=== PATIENT | male | born 1950 | race Caucasian/White ===

== ENCOUNTER 2023-01-05 07:30 | Observation (INO) ==
--- NOTE | 2022-12-08 09:14 | PAT Medication Instructions ---
Medication Instructions Date of Service December 08, 2022 Home Medications cholecalciferol (vitamin D3) 50 mcg (2,000 unit) tablet (Vitamin D3) 50 mcg PO QAM tamsulosin 0.4 mg capsule 0.4 mg PO HS aspirin 81 mg tablet,delayed release 81 mg PO QAM lisinopril 30 mg tablet 15 mg PO QAM pantoprazole 40 mg tablet,delayed release 20 mg PO QAM ASK your prescriber and surgeon aspirin 81 mg tablet,delayed release 81 mg PO QAM DO NOT take the morning of surgery cholecalciferol (vitamin D3) 50 mcg (2,000 unit) tablet (Vitamin D3) 50 mcg PO QAM lisinopril 30 mg tablet 15 mg PO QAM Take morning of surgery With a small sip of water, OTHERWISE NOTHING TO EAT OR DRINK AFTER MIDNIGHT: pantoprazole 40 mg tablet,delayed release 20 mg PO QAM Take evening before surgery tamsulosin 0.4 mg capsule 0.4 mg PO HS Other Notes If you have any questions please call us at [phone] or [phone] or [phone] or [phone]
--- NOTE | 2022-12-09 08:47 | History & Physical Report ---
Date of Service December 09, 2022 date of surgery: 01/05/23 Procedure: Left Total Knee Arthroplasty, Right Arthroscopy Knee with Partial medial and Lateral Menisectomies Surgeon: Sonny Virk Assessment & Plan (1) Arthritis of knee, left: Plan: X-rays reviewed of his left knee which show advanced degenerative changes of the left knee, we discussed treatment options and he would like to proceed with a left total knee replacement, patient matched [employer] at [facility]. We will plan on scoping his right knee at the same time. We will plan on overnight stay at the hospital and home health physical therapy. Will place on Xarelto x1 month postop for DVT prophylaxis The risks and benefits have been discussed including, but not limited to, risk of infection, nerve injury, stiffness, loss of motion, failure to improve, etc. Reasonable outcomes and options of treatment were discussed. An explanation of appropriate alternatives to the procedure that may be advantageous were discussed and their risks and benefits, as well as the risks and benefits of not proceeding with treatment. I offered to answer any additional inquiries concerning the treatment involved. All the patient's questions were answered. The patient is agreeable, understanding of the treatment plan and alternatives, and wishes to proceed with the treatment plan. (2) Tear of medial meniscus of right knee: Plan: MRI and x-rays reviewed of his right knee which show tear of both medial lateral meniscus as well as degenerative changes to the right knee joint. We discussed treatment options including injections as well as arthroscopy versus total knee replacement. He has tried injections which have only provided short-term relief, he does not feel that he is quite ready for a right knee replacement and would like to proceed with right knee arthroscopy with partial medial lateral meniscectomies. We did discuss he has some underlying degenerative changes as well. (3) Tear of lateral meniscus of right knee: History of Present Illness Chief Complaint: bilateral knee pain Primary Care Provider: Preet Cisneros MD Darin is a pleasant 72-year-old male who presents for preop evaluation prior to left total knee replacement and right knee arthroscopy with partial medial and lateral meniscectomies. X-rays reviewed with patient which show advanced degenerative changes of the left knee, had an MRI evaluation of the right knee which showed medial lateral meniscus tears. He has undergone previous cortisone injections which provide about 1 to 2 weeks of relief, currently active in his daily activities including walking standing going up and down steps. Also having pain with golfing. He has tried oral anti-inflammatories and Tylenol without relief. After discussing further care he would like to proceed with surgical invention. He has also had a history of knee arthroscopy to each of his knees in the past Allergies Allergy/AdvReac Type Severity Reaction Status Date / Time doxycycline Allergy Mild itching Verified 12/02/22 13:47 Home Medications Medication Instructions Recorded Confirmed Type cholecalciferol (vitamin D3) 50 50 mcg PO QAM 03/12/22 12/02/22 History mcg (2,000 unit) tablet (Vitamin D3) tamsulosin 0.4 mg capsule 0.4 mg PO HS 03/12/22 12/02/22 History aspirin 81 mg tablet,delayed 81 mg PO QAM 12/02/22 12/02/22 History release lisinopril 30 mg tablet 15 mg PO QAM 12/02/22 12/02/22 History pantoprazole 40 mg tablet,delayed 20 mg PO QAM 12/02/22 12/02/22 History release Past Med/Surg History Medical History Arthritis BPH (benign prostatic hyperplasia) History of atrial fibrillation at age 50 > no known recurrence History of COVID-19 Covid x2, most recent 05/2021 (asymptomatic, exposure - from it) Hx of gastroesophageal reflux (GERD) Hx of gout Hx of pancreatitis 2021 hospitalized/EUS done at [facility] [place] Surgical History History of arthroscopy R/L knees History of cholecystectomy History of colonoscopy History of tooth extraction Hx of inguinal hernia repair Family History Mother Diabetes Other No family history of adverse response to anesthesia Social History Smoking Status: Never smoker Second Hand Exposure: No; Do You Dip or Chew Tobacco: No; Hx Alcohol Use: No Hx Substance Use: No Preferred Language: Mohawk Communication Ability: Effective Rn Hematology Required: No Beliefs That Will Affect Care: None Current Living Situation: Significant Other Feels Safe at Home: Yes Safety Concerns: Feels Safe At This Time Assistive Devices: Glasses Review of Systems Review of Systems: All systems reviewed & are unremarkable except as noted in HPI & below Constitutional: no fever, no chills and no sweats Respiratory: no cough and no dyspnea Cardiovascular: no chest pain, no dyspnea and no orthopnea Gastrointestinal: no abdominal pain, no nausea and no vomiting Musculoskeletal: as per Subjective / HPI Physical Exam Physical Exam: HT: 6 ft WT: 82.55 kg Constitutional: WD/WN, vitals as above no acute distress Respiratory: normal respiratory effort, lungs clear to auscultation no respiratory distress, no labored breathing and does not use accessory muscles Cardiovascular: RRR, no murmur, no edema Gastrointestinal (Abdomen): normal bowel sounds, soft, nontender, no hepatosplenomegaly Musculoskeletal: Knee: + knee abnormal to inspection (LEFT KNEE), + effusion (+1 effusion), + limited ROM of knee (ROM 0/3/110), + knee ROM with crepitation, + joint line tenderness (medial joint line) and + Isai's sign positive; no deformity, no skin erythema, no ecchymosis, no valgus laxity, no varus laxity, anterior drawer test negative, Ac's sign negative and pivot shift test negative Right Knee Exam ambulates with a limp, overall neutral alignment, no erythema or warmth, no atrophy or ecchymosis, mild effusion, tenderness to the knee greatest over medial compartment, negative patellar apprehension , no crepitation with motion, ac's negative, Isai's - lateral negative, Isai's - medial positive, Posterior drawer- negative, anterior drawer negative, valgus stress negative, varus stress negative, no extensor lag, pain with active range of motion, no pain with passive painful ROM, Range of motion 0/3/120. No pain with active/passive ROM of ankle. Lower extremity strength normal. Lower extremity neuro-vascular is normal Results & Data Results & Data Diagnostic Findings 4 views left knee showing advanced DJD of the left knee, bone on bone changes, narrowing medial compartment an PF joint with osteophyte formation and subchondral sclerosis. no acute bony pathology noted. Assessment: DJD of the left knee MRI reviewed of his right knee which shows tears of the medial lateral meniscus as well as degenerative changes tricompartmentally
--- NOTE | 2022-12-16 10:58 | Anesthesiology Consultation ---
Date of Service December 16, 2022 Assessment & Plan (1) Encounter for pre-operative examination: - COVID screening: Per assessment on 12/16: No known COVID-19 positive contacts or current COVID-19 related symptoms. Travel screen negative. Patient vaccinated. At surgeon discretion if preop Covid testing being done. - PCP visit (11/18/22): "Patient is cleared for surgery." Chart Review Chart Review: Acceptable Risk for Surgery and Patient seen in Pre Admission Testing Teaching & Discussion Pre-Anesthesia Teaching/Discussion Notes: Instructed NPO after midnight before surgery,except medications with 15 cc of water. Medication instructions provided according to the PAT guidelines. History Surgery Operation Date: 01/05/23 11:20 Proposed Procedures p Left Total Knee Arthroplasty - Sonny Virk DO s Right Arthroscopy Knee with Partial medial and Lateral Menisectomies - Sonny Virk DO Height/Weight Height: 6 ft Weight: 85.6 kg Allergies Allergy/AdvReac Type Severity Reaction Status Date / Time doxycycline Allergy Mild itching Verified 12/02/22 13:47 Medications Home Medications Medication Instructions Recorded Confirmed Last Taken cholecalciferol (vitamin D3) 50 50 mcg PO QAM 03/12/22 12/02/22 Unknown mcg (2,000 unit) tablet (Vitamin D3) tamsulosin 0.4 mg capsule 0.4 mg PO HS 03/12/22 12/02/22 Unknown aspirin 81 mg tablet,delayed 81 mg PO QAM 12/02/22 12/02/22 Unknown release lisinopril 30 mg tablet 15 mg PO QAM 12/02/22 12/02/22 Unknown pantoprazole 40 mg tablet,delayed 20 mg PO QAM 12/02/22 12/02/22 Unknown release Past Medical History Medical History Arthritis BPH (benign prostatic hyperplasia) History of atrial fibrillation Episode at age 50, no known recurrence History of COVID-19 Covid x2, most recent 05/2021 (asymptomatic, exposure - from it) Hx of gastroesophageal reflux (GERD) Hx of gout Hx of pancreatitis 2021 hospitalized/EUS done at [place], no current issues Hypertension Right leg numbness Right thigh occasional numbness with prolonged standing, no definitive diagnosis Exercise / Class Metabolic Activity II 4-5 Yardwork/Stairs/Walk up hill (one FS (no CP, no SOB)) Past Family History Family History Mother Diabetes Other No family history of adverse response to anesthesia Past Surgical History Surgical History History of arthroscopy R/L knees History of cholecystectomy History of colonoscopy History of tooth extraction Hx of inguinal hernia repair Past Anesthesia History No Hx of Anesthesia Complications and No Family Hx of Anesthesia Complications History of PONV No Hx of PONV and No Hx of Motion Sickness Social History Smoking Status: Never smoker Do You Dip or Chew Tobacco: No Hx Alcohol Use: No Alcohol type: wine alcohol intake frequency: 0-2 drinks per day (At most one glass wine/day) Hx Substance Use: No substance use type: does not use Review of Systems Patient denies chest pain, shortness of breath, dyspnea on exertion, fever, chills, cough, wheezing, palpitations. Physical Exam Vital Signs VITALS BP 138/75 P 51 TEMP 97.8 SP02 97%RA RESP 16 PHYSICAL Full cervical extension range of motion. Full TMJ range of motion. TMD 3 finger breaths Mallampati Score 2 Dentition: intact, + caps/crowns/implant (sides/molars) Lungs: clear throughout to auscultation Cardiac: regular rate and rhythm, no murmurs noted Spine: normal Carotid arteries: negative bruit Extremities: no LE edema Lab Results Anesthesia Preop Results Results Anesthesia Widget: WBC 4.20 K/ul (4.8-10.8) L 12/16/22 Hgb 14.4 g/dl (14.0-18.0) 12/16/22 Hct 44.2 % (42.0-52.0) 12/16/22 Plt 190 K/uL (130-400) 12/16/22 Na 138 mmol/L (136-145) 12/16/22 K 4.9 mmol/L (3.5-5.1) 12/16/22 Cl 105 mmol/L (98-107) 12/16/22 CO2 30 mmol/L (21-32) 12/16/22 BUN 26 mg/dl (6-23) H 12/16/22 Creat 0.86 mg/dl (0.6-1.4) 12/16/22 Glucose Level 112 mg/dl (70-99(Fasting)) H 12/16/22 PT 11.0 Seconds (9.0-12.0) 12/16/22 PTT 29.5 Seconds (21.0-31.0) 12/16/22 INR 1.0 (0.9-1.1) 12/16/22 HA1c 6.1 % (4.5-5.6) H 12/16/22 Urine Color Yellow 12/16/22 Urine Appearance Clear (Clear) 12/16/22 Urine pH 5.5 (4.5-7.5) 12/16/22 Urine Specific [place] 1.015 (1.000-1.030) 12/16/22 Urine Protein Negative (Negative) 12/16/22 Urine Glucose (UA) Negative (Negative) 12/16/22 Urine Ketones Negative (Negative) 12/16/22 Urine Blood Negative (Negative) 12/16/22 Urine Nitrite Negative (Negative) 12/16/22 Urine Bilirubin Negative (Negative) 12/16/22 Urine Urobilinogen Negative (Negative) 12/16/22 Urine Leukocyte Esterase Negative (Negative) 12/16/22 Blood Type O Positive 12/16/22 Antibody Screen NEGATIVE 12/16/22 Testing Laboratory Results Low WBC > preop testing forwarded to PCP for continuity of care* Electrocardiogram Date: 03/19/22 SB at 51bpm. Otherwise normal ECG. Chest X-Ray Date: 10/13/22 Findings: + NAD COVID-19 Risk Screen Screening Information COVID-19 Screen Date: 12/16/22 Exposure 21 Days Family/Household +COVID Last 21 Days: No Exposure 10 Days Any COVID Exposure Last 10 Days: No Symptoms Last 10 Days Experienced COVID Sx Last 10 Days: No + COVID 0-90 Days COVID + in Last 0-90 Days: No
[~2023-01-05 07:30] MED LIST: ACETAMINOPHEN 500 MG TAB PO SCH; CeleBREX 200 MG CAP PO SCH; FAMOTIDINE 20 MG TAB PO SCH; GABAPENTIN 300 MG CAP PO SCH; LR 500ML BOLUS, THEN 15ML/HR IV SCH; LR 60ML/HR IV SCH; METOCLOPRAMIDE HCL 10 MG TABLET PO SCH; ROPIVACAINE 0.5% HCL/PF 150 MG, BUPIVACAINE 0.75% MPF 20 ML, EPINEPHrine 30MG/30ML (OR ... INFIL SCH; TRANEXAMIC ACID 1,000 MG **IV Intra-op IV SCH; TRANEXAMIC ACID 1,000 MG **IV Pre-op IV SCH; ceFAZolin 2000MG 2,000 MG/15 ML SYR IV SCH; dexAMETHasone 4 MG TAB PO SCH
[2023-01-05] MEDS ORDERED: BUPIVACAINE 0.5 % 5 MG/1 ML PF 10ML VIAL ONE (07:34)
[2023-01-05] MEDS ORDERED: DEXAMETHASONE SOD INJ 4 MG/ML VIAL ONE (07:34)
[2023-01-05] MEDS ORDERED: EPINEPHrine INJ 1 MG/ML AMP ONE (07:34)
[2023-01-05] MEDS ORDERED: BUPIVACAINE 0.25% PF 30 ML VIAL ONE (07:34)
[2023-01-05] MEDS ORDERED: KETAMINE 50 MG/5 ML SYRINGE ONE (07:45)
[2023-01-05] MEDS ORDERED: MIDAZOLAM HCL 1 MG/ML 2ML VIAL ONE (07:45)
[2023-01-05] MEDS ORDERED: LIDOCAINE 2% 2 ML VIAL/AMP(20MG/ML) INFIL ONE (08:19)
[2023-01-05] MEDS ORDERED: GLYCOPYRROLATE 0.2 MG/ML VIAL ONE (08:19)
[2023-01-05] MEDS ORDERED: ONDANSETRON INJ 2 MG/ML 2 ML VIAL ONE (08:19)
[2023-01-05] MEDS ORDERED: PROPOFOL IV EMULSION 10 MG/ML 20 ML VIAL IV ONE ×2 (08:19→11:22)
--- NOTE | 2023-01-05 08:28 | History & Physical Bridge Note ---
Date of Service January 05, 2023 History & Physical Bridge Note I have examined the patient, reviewed the History & Physical and in the interval since the performance of the History & Physical I have noted the following changes of clinical significance: no changes noted
[2023-01-05] MEDS ORDERED: ONDANSETRON INJ 2 MG/ML 2 ML VIAL IV PRN ×2 (09:00→13:31)
[2023-01-05] MEDS ORDERED: ATROPINE SULFATE 0.1 MG/ML 10ML SYR IV PRN (09:00)
[2023-01-05] MEDS ORDERED: fentaNYL citrate PF 100 MCG/2 ML VIAL IV PRN (09:00)
[2023-01-05] MEDS ORDERED: ePHEDrine sulfate 50 MG/ML AMP IV PRN (09:00)
[2023-01-05] MEDS ORDERED: ORTHO JOINT ANESTHETIC ONE (09:15)
[2023-01-05] MEDS ORDERED: BUPIVACAINE/EPINEPHRINE 0.5% MPF 1:200,000 30 ML VIAL ONE (09:17)
--- NOTE | 2023-01-05 11:42 | Operative Report ---
Post Operative Report Pre & Post Diagnosis Operation Date: 01/05/23 09:00 Pre-Op Diagnosis: 1. Arthritis, left knee 2. Complex tear of medial and lateral meniscus Post-Op Diagnosis: 1. Arthritis, left knee 2. 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- Sonny Virk DO Surgeon Sonny Virk DO [employer] Major Musa MAY Estimated Blood Loss 7 Findings Consistent with Post-Op Diagnosis Left knee severe end-stage tricompartmental degenerative joint disease eburnated [id number] subchondral cystic changes marginal osteophytes with eburnated [id number] and moderate to large effusion right knee complex tear posterior medial meniscus complex tear posterior horn lateral meniscus with grade 4 chondral lesion lateral tibial plateau grade 4 chondral lesion medial tibial plateau Specimens Bone and cartilage Drains Medium bore Hemovac Anesthesia Type MAC Spinal Regional Complications none Disposition Accompanied Patient To Recovery: No Disposition: Recovery Room Indications Patient presents with bilateral knee pain left severe end-stage tricompartmental DJD right patient has DJD but also complex tears of both posterior horns of medial lateral meniscus the above intraoperative findings patient's failed attempted conservative management on the left knee including corticosteroid injection viscosupplementation relative rest activity modification bracing and presents for left total knee arthroplasty presents for right knee arthroscopy with partial medial lateral meniscectomies Description of Procedure After proper prepping and draping of the left lower extremity anterior midline incision was made over the region of the extensor extensor mechanism after meticulous hemostasis was obtained and maintained in subcutaneous tissues a medial parapatellar incision was made The patella was subluxed lateralward the medial lateral gutter were cleaned from any hypertrophic synovitis and scar tissue of the distal femoral block was placed and the distal femoral osteotomy cut was made subsequently the chamfers anterior and posterior osteotomy cuts were made utilizing the 4-in-1 block the tibia was subsequently subluxed anteriorward medial and ateral meniscal remnants were excised in their entirety remnants of the anterior and posterior cruciate ligaments were excised in their entirety excellent exposure of the proximal tibia was obtained the tibial osteotomy guide was placed on the proximal tibial osteotomy cut was made once again the knee was irrigated with copious amounts of sterile saline solution the patella was subsequently everted lateralward thickened scar tissue around the patella was removed the patella was subsequently cut utilizing a freehand technique and was drilled prepared for final preparation and placement of patella socially flexion-extension gaps were checked and the equal and symmetric trials were placed to the appropriate femoral and tibial trials with poly-spacer being placed for equal flexion and extension gaps and full range of motion including extension to 0 and flexion to 140 the trial components after having been taken to recovery range of motion was subsequently removed meticulous hemostasis was obtained and maintained subsequently a knee block injection of joint cocktail including ropivacaine 0.5% 150 mg. Bupivacaine 0.5% epinephrine 1-200,030 mL's toradol 30 mg dexamethasone 4 mg ketamine 10 mg clonidine 100 micrograms normal saline solution 30 mg was infiltrated into the soft tissues of the posterior knee medial lateral gutters and periosteal synovium special attention was paid to protect neurovascular structures at all times subsequently trial components having been removed the knee was irrigated with sterile saline solution. debris was removed the proximal tibia was subsequently prepared and was made ready for the placement of the tibial component tibial component was also cemented and tamped into position the femoral component was subsequently placed and cemented in the position the patellar component was subsequently cemented in position because hemostasis once again obtained and maintained wound having been thoroughly irrigated with debridement and debridement lavage was performed as well as a medial parapatellar incision closed with #1 Vicryl in interrupted fashion subcutaneous was closed with #2 Vicryl skin was closed with skin clips. LALO-Davidson was necessary for prepping and drapping as well as wound closure of deep fascia Sub cutaneous tissue and skin and was necessary for the case. A sterile compressive dressing was placed patient was taken to recovery in stable condition of report dictated by Moose Brown attest to the content of the Intraoperative Record and any orders documented therein. Any exceptions are noted below.Due to the complex nature of the procedure, the entire surgery was performed with the operational assistance of Musa GUILLERMO. The project administrative assistant, under direct supervision, was involved in the actual performance of all aspects of the surgical procedure including hemostasis, tissue retraction and incision, instrument management, patient positioning, and wound closure.Subsequently the right knee had been been already prepped and draped medial lateral parapatellar portals were created our scope examination beginning region the medial compartment revealed there to be evidence of a complex tear of the posterior horn of the medial meniscus subcu partial posterior horn medial meniscectomy is performed there is grade III and IV chondromalacia involving the medial femoral condyle medial tibial plateau chondroplasty performed back to a stable margin there is a chronic complete tear of the anterior cruciate ligament stump was debrided there was noted to be a complex tear of the posterior horn of the lateral meniscus with grade 4 eburnated lateral tibial plateau a partial posterior horn lateral meniscectomies performed back to a stable margin patellofemoral joint had grade II and III chondromalacia having formed a thorough partial posterior horn lateral meniscectomy partial posterior horn medial meniscectomy chondroplasty articular matter region move skin portals closed with 4-0 nylon 20 cc of cortisone Marcaine with epinephrine was placed into the intra-articular portion of the knee joint sterile compressive dressings placed patient taken recovery stable condition operative dictated by Moose. I attest to the content of the Intraoperative Record and any orders documented therein. Any exceptions are noted below.
--- NOTE | 2023-01-05 13:24 | Anesthesiology Progress Note ---
Date of Service January 05, 2023 Anesthesia Post Procedure Vital Signs Vital Signs: Temp Pulse Pulse Resp BP Pulse Ox O2 Del Method 01/05/23 13:20 50 L 16 119/73 96 Room Air 01/05/23 13:10 36.4 C L 50 L 16 116/77 96 Room Air 01/05/23 13:00 55 L 16 118/75 95 Room Air 01/05/23 12:50 56 L 16 118/76 96 Room Air 01/05/23 12:40 57 L 16 129/75 96 Room Air 01/05/23 12:30 56 L 16 124/75 97 Room Air 01/05/23 12:20 53 L 16 119/79 97 Room Air 01/05/23 12:10 60 18 118/72 100 Oxymask 01/05/23 12:06 36.4 C L 57 L 18 114/66 100 Oxymask 01/05/23 08:03 36.8 C 50 L 18 135/78 97 Room Air O2 Flow Rate 01/05/23 13:20 01/05/23 13:10 01/05/23 13:00 01/05/23 12:50 01/05/23 12:40 01/05/23 12:30 01/05/23 12:20 01/05/23 12:10 6 01/05/23 12:06 6 01/05/23 08:03 Pain Intensity Bilateral Knee: Pain Intensity: 2 Transfer of Care Handoff Completed per policy Notes Mental Status: alert / awake / arousable Patient Amnestic to Procedure: Yes Nausea / Vomiting: adequately controlled Pain: adequately controlled Airway Patency, RR, SpO2: stable & adequate BP & HR: stable & adequate Hydration State: stable & adequate Neuraxial Anesthesia: was administered and sensory block is resolving Anesthetic Complications: no major complications apparent and Pt Satisfied with anesthetic care
[2023-01-05] MEDS ORDERED: SODIUM CHLORIDE 0.9% 1000ML 1,000 ML IV SCH (13:31)
[2023-01-05] MEDS ORDERED: bisacodyL 10 MG SUPP PR PRN (13:31)
[2023-01-05] MEDS ORDERED: oxyCODONE HCL IR 5 MG TAB (IMMEDIATE RELEASE) PO PRN (13:31)
[2023-01-05] MEDS ORDERED: NALOXONE HCL 0.4 MG/1 ML VIAL/CARP IV PRN (13:31)
[2023-01-05] MEDS ORDERED: diphenhydrAMINE 50 MG/ML VIAL IV PRN (13:31)
[2023-01-05] MEDS ORDERED: HYDROmorphone INJ 0.5 MG/0.5 ML SYR IV PRN (13:31)
[2023-01-05] MEDS ORDERED: MAGNESIUM HYDROXIDE SUSP 30 ML UDC PO PRN (13:31)
--- NOTE | 2023-01-05 14:45 | XRay Report ---
TWO VIEWS LEFT KNEE CLINICAL HISTORY: Postoperative examination. FINDINGS: AP and crosstable lateral portable views of the left knee are obtained. A left knee arthrop lasty is in near anatomic alignment. There has been undersurface remodeling of the patella. No acute fracture is seen. There are expected postoperative changes around the knee including a surgical drain , soft tissue edema, and subcutaneous gas. IMPRESSION: Expected postoperative changes status post left knee arthroplasty. No acute fracture is s een. ACT 112: Negative or not required by law. Electronically signed by: Rudy Brown M.D. 01/05/2023 2:44 PM
[2023-01-05] MEDS: ACETAMINOPHEN 500 MG TAB PO SCH ×2 (14:46→20:42)
[2023-01-05] MEDS: ceFAZolin 2000MG 2,000 MG/15 ML SYR IV SCH (17:39)
[2023-01-05] MEDS: DOCUSATE SODIUM 100 MG CAP PO SCH (20:42)
[2023-01-05] MEDS ORDERED: TAMSULOSIN HCL 0.4 MG CAP PO SCH (21:00)
[2023-01-05] MEDS ORDERED: SENNA 8.6 MG TAB PO SCH (21:00)
[2023-01-06] MEDS: ceFAZolin 2000MG 2,000 MG/15 ML SYR IV SCH (01:25)
[2023-01-06] MEDS: ACETAMINOPHEN 500 MG TAB PO SCH (05:52)
[2023-01-06 07:04] LABS: Hematocrit (blood only) 35.9 % (42.0-52.0); Hemoglobin 12.4 g/dl (14.0-18.0); Mean Corpuscular Hemoglobin 31.6 pg (25.0-34.0); Mean Corpuscular Hgb Conc 34.5 g/dL (32.0-36.0); Mean Corpuscular Volume 91.3 fL (80.0-100.0); Platelet Count 168 K/uL (130-400); RDW Coefficient of Variation 14.7 % (11.5-14.5); RDW Standard Deviation 49.9 fL (36.4-46.3); Red Blood Count 3.93 M/uL (4.70-6.10); White Blood Count 12.43 K/ul (4.8-10.8)
--- NOTE | 2023-01-06 07:13 | Orthopedic Progress Note ---
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 pt/ot dvt proph with HAIM/SCD/Xarelto plan for d/c home with HHPT Admission and Anticipated Discharge Date Admission Date: January 05, 2023 Subjective POD #1 s/p Left TKA, right knee scope Review of Systems Constitutional: no fever, no chills and no sweats Respiratory: no cough and no dyspnea Cardiovascular: no chest pain and no dyspnea Gastrointestinal: no abdominal pain, no nausea and no vomiting Physical Exam Physical Exam: Vital Signs Temp Pulse Pulse Pulse Resp BP Pulse Ox 01/06/23 03:09 36.5 C 52 L 16 127/75 96 01/05/23 20:40 01/05/23 23:03 36.4 C L 54 L 16 133/85 97 01/05/23 19:55 36.4 C L 57 L 16 138/79 95 01/05/23 16:29 36.3 C L 46 L 16 138/77 98 01/05/23 15:41 43 L 16 138/79 98 01/05/23 14:48 36.5 C 45 L 16 146/83 H 98 01/05/23 14:07 53 L 15 133/79 97 01/05/23 13:31 36.4 C L 51 L 16 121/73 96 01/05/23 13:20 50 L 16 119/73 96 01/05/23 13:10 36.4 C L 50 L 16 116/77 96 01/05/23 13:00 55 L 16 118/75 95 01/05/23 12:50 56 L 16 118/76 96 01/05/23 12:40 57 L 16 129/75 96 01/05/23 12:30 56 L 16 124/75 97 01/05/23 12:20 53 L 16 119/79 97 01/05/23 12:10 60 18 118/72 100 01/05/23 12:06 36.4 C L 57 L 18 114/66 100 01/05/23 08:03 36.8 C 50 L 18 135/78 97 O2 Del Method O2 Flow Rate 01/06/23 03:09 Room Air 08/02/23 20:40 Room Air 01/05/23 23:03 Room Air 01/05/23 19:55 Room Air 01/05/23 16:29 Room Air 01/05/23 15:41 Room Air 01/05/23 14:48 Room Air 01/05/23 14:07 Room Air 01/05/23 13:31 Room Air 01/05/23 13:20 Room Air 01/05/23 13:10 Room Air 01/05/23 13:00 Room Air 01/05/23 12:50 Room Air 01/05/23 12:40 Room Air 01/05/23 12:30 Room Air 01/05/23 12:20 Room Air 01/05/23 12:10 Oxymask 6 01/05/23 12:06 Oxymask 6 01/05/23 08:03 Room Air Intake and Output 01/05/23 01/06/23 01/06/23 22:59 06:59 14:59 Intake Total 0 / 1400 Output Total 825 / 2032 1200 / 2032 Balance -825 / -632 -1200 / -632 Intake: IV 0 / 200 Sodium Chlorid e 0.9% 1000ML 1, 0 / 0 000 ml @ 100 m ls/hr IV .Q10H [facility] Rx#:[id number] Output: Urine 675 / 1775 1100 / 1775 Drain Output 150 / 250 100 / 250 Left Knee Hemo vac 150 / 250 100 / 250 Constitutional: WD/WN, vitals as above Musculoskeletal: Left Leg: NVDI, calf SNT, negative stephanie sign. DP palpable, able to wiggle toes/ankle movement without difficulty. dressing clean dry and intact. Results & Data Vital Signs (Past 12 Hours) Vital Signs Temp Pulse Resp BP Pulse Ox O2 Del Method 01/06/23 03:09 36.5 C 52 L 16 127/75 96 Room Air 01/05/23 20:40 Room Air 01/05/23 23:03 36.4 C L 54 L 16 133/85 97 Room Air 01/05/23 19:55 36.4 C L 57 L 16 138/79 95 Room Air Laboratory Results Laboratory Results WBC 12.43 K/ul (4.8-10.8) H 01/06/23 06:26 RBC 3.93 M/uL (4.70-6.10) L 01/06/23 06:26 Hgb 12.4 g/dl (14.0-18.0) L 01/06/23 06:26 Hct 35.9 % (42.0-52.0) L 01/06/23 06:26 MCV 91.3 fL (80.0-100.0) 01/06/23 06:26 MCH 31.6 pg (25.0-34.0) 01/06/23 06:26 MCHC 34.5 g/dL (32.0-36.0) 01/06/23 06:26 RDW Std Deviation 49.9 fL (36.4-46.3) H 01/06/23 06:26 RDW Coeff of Maryanne 14.7 % (11.5-14.5) H 01/06/23 06:26 Plt Count 168 K/uL (130-400) 01/06/23 06:26 MPV 10.0 fL (9.4-12.4) 01/06/23 06:26 Impressions Knee X-Ray 01/05/23 12:11 TWO VIEWS LEFT KNEE CLINICAL HISTORY: Postoperative examination. FINDINGS: AP and crosstable lateral portable views of the left knee are obtained. A left knee arthroplasty is in near anatomic alignment. There has been undersurface remodeling of the patella. No acute fracture is seen. There are expected postoperative changes around the knee including a surgical drain, soft tissue edema, and subcutaneous gas. IMPRESSION: Expected postoperative changes status post left knee arthroplasty. No acute fracture is seen. ACT 112: Negative or not required by law. Electronically signed by: Rudy Brown M.D. 01/05/2023 2:44 PM
[2023-01-06 07:17] LABS: BUN Creatinine Ratio 27.6 (10-20); Calcium 8.5 mg/dl (8.6-10.3); Creatinine Clr Calc Pharmacy 84.2 ml/min; Est GFR (African American) 99.9 ml/min; Est GFR (Non-African American) 86.2 ml/min; Potassium 4.1 mmol/L (3.5-5.1)
[2023-01-06] MEDS ORDERED: CHOLECALCIFEROL 1,000 UNITS 25 MCG TAB PO SCH (09:00)
[2023-01-06] MEDS ORDERED: RIVAROXABAN 10 MG TABLET PO SCH (09:00)
[2023-01-06] MEDS ORDERED: MULTIVITAMIN TAB PO SCH (09:00)
[2023-01-06] MEDS ORDERED: PANTOprazole 40 MG TAB PO SCH ×2 (09:00)
[2023-01-06] MEDS ORDERED: lisinopril 5 MG TAB PO SCH (09:00)
[2023-01-06] MEDS: DOCUSATE SODIUM 100 MG CAP PO SCH (09:08)
--- NOTE | 2023-01-07 11:26 | Discharge Summary ---
Date of Service January 07, 2023 Admission HPI Per Admitting Provider Damien is a pleasant 72-year-old male who presents for preop evaluation prior to left total knee replacement and right knee arthroscopy with partial medial and lateral meniscectomies. X-rays reviewed with patient which show advanced degenerative changes of the left knee, had an MRI evaluation of the right knee which showed medial lateral meniscus tears. He has undergone previous cortisone injections which provide about 1 to 2 weeks of relief, currently active in his daily activities including walking standing going up and down steps. Also having pain with golfing. He has tried oral anti-inflammatories and Tylenol without relief. After discussing further care he would like to proceed with surgical invention. He has also had a history of knee arthroscopy to each of his knees in the past Admission Exam Per Admitting Provider Physical Exam: HT: 6 ft WT: 82.55 kg Constitutional: WD/WN, vitals as above no acute distress Respiratory: normal respiratory effort, lungs clear to auscultation no respiratory distress, no labored breathing and does not use accessory muscles Cardiovascular: RRR, no murmur, no edema Gastrointestinal (Abdomen): normal bowel sounds, soft, nontender, no hepatosplenomegaly Musculoskeletal: Knee: + knee abnormal to inspection (LEFT KNEE), + effusion (+1 effusion), + limited ROM of knee (ROM 0/3/110), + knee ROM with crepitation, + joint line tenderness (medial joint line) and + Isai's sign positive; no deformity, no skin erythema, no ecchymosis, no valgus laxity, no varus laxity, anterior drawer test negative, Ac's sign negative and pivot shift test negative Right Knee Exam ambulates with a limp, overall neutral alignment, no erythema or warmth, no atrophy or ecchymosis, mild effusion, tenderness to the knee greatest over medial compartment, negative patellar apprehension , no crepitation with motion, ac's negative, Isai's - lateral negative, Isai's - medial positive, Posterior drawer- negative, anterior drawer negative, valgus stress negative, varus stress negative, no extensor lag, pain with active range of motion, no pain with passive painful ROM, Range of motion 0/3/120. No pain with active/passive ROM of ankle. Lower extremity strength normal. Lower extremity neuro-vascular is normal Principal Diagnosis Left knee osteoarthritis Discharge Data Allergies Allergy/AdvReac Type Severity Reaction Status Date / Time doxycycline Allergy Mild itching Verified 01/05/23 07:50 Procedures Performed Operation Date: 01/05/23 09:00 Actual Procedures p Left total knee arthroplasty, cemented(Left) - Sonny Pisano DO s Right knee arthroscopy with partial medial and lateral menisectomies(Right) - Sonny Pisano DO Ordered Studies 01/05/23 05:00 US - OR guided needle placemen Routine Hospital Course (1) History of total left knee replacement: Patient:DAMIEN SAINI Admit Date:01/05/23 MR#:[id number] Att Phy:Sonny Pisano,D.OPreston Acct ID:[id number] Katya Phy:Preet Cisneros MD Date:1950 Fam Phy: Age:72 Location: Sex: Room/Bed:[facility] cc: ~ *NOTICE TO RECEIVING DEMOCRAT/AGENCY This information is strictly Confidential and protected under [place] law. [place] law prohibits you from making any further disclosure of this information unless further disclosure is expressly permitted by the written consent of the person to whom it pertains or is authorized by law. A general authorization for the release of medical or other information is not sufficient for this purpose. Hospital accepts no responsibility if the information is made available to any other person, INCLUDING THE PATIENT. 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 pt/ot dvt proph with HAIM/SCD/Xarelto plan for d/c home with HHPT Admission and Anticipated Discharge Date Admission Date: January 05, 2023 Subjective POD #1 s/p Left TKA, right knee scope Review of Systems Constitutional: no fever, no chills and no sweats Respiratory: no cough and no dyspnea Cardiovascular: no chest pain and no dyspnea Gastrointestinal: no abdominal pain, no nausea and no vomiting Physical Exam Physical Exam: Vital Signs Temp Pulse Pulse Pulse Resp BP Pulse Ox 01/06/23 03:09 36.5 C 52 L 16 127/75 96 01/05/23 20:40 01/05/23 23:03 36.4 C L 54 L 16 133/85 97 01/05/23 19:55 36.4 C L 57 L 16 138/79 95 01/05/23 16:29 36.3 C L 46 L 16 138/77 98 01/05/23 15:41 43 L 16 138/79 98 01/05/23 14:48 36.5 C 45 L 16 146/83 H 98 01/05/23 14:07 53 L 15 133/79 97 01/05/23 13:31 36.4 C L 51 L 16 121/73 96 01/05/23 13:20 50 L 16 119/73 96 01/05/23 13:10 36.4 C L 50 L 16 116/77 96 01/05/23 13:00 55 L 16 118/75 95 01/05/23 12:50 56 L 16 118/76 96 01/05/23 12:40 57 L 16 129/75 96 01/05/23 12:30 56 L 16 124/75 97 01/05/23 12:20 53 L 16 119/79 97 01/05/23 12:10 60 18 118/72 100 01/05/23 12:06 36.4 C L 57 L 18 114/66 100 01/05/23 08:03 36.8 C 50 L 18 135/78 97 O2 Del Method O2 Flow Rate 01/06/23 03:09 Room Air 01/05/23 20:40 Room Air 01/05/23 23:03 Room Air 01/05/23 19:55 Room Air 01/05/23 16:29 Room Air 01/05/23 15:41 Room Air 01/05/23 14:48 Room Air 01/05/23 14:07 Room Air 01/05/23 13:31 Room Air 01/05/23 13:20 Room Air 01/05/23 13:10 Room Air 01/05/23 13:00 Room Air 01/05/23 12:50 Room Air 01/05/23 12:40 Room Air 01/05/23 12:30 Room Air 01/05/23 12:20 Room Air 01/05/23 12:10 Oxymask 6 01/05/23 12:06 Oxymask 6 01/05/23 08:03 Room Air Intake and Output 01/05/23 01/06/23 01/06/23 22:59 06:59 14:59Intake Total 0 / 1400 Output Total 825 / 2032 1200 / 2032 Balance -825 / -632 -1200 / -632 Intake: IV 0 / 200 Sodium Chlorid e 0.9% 1000ML 1, 0 / 0 000 ml @ 100 m ls/hr IV .Q10H [facility] Rx#:[id number] Output: Urine 675 / 1775 1100 / 1775 Drain Output 150 / 250 100 / 250 Left Knee Hemo vac 150 / 250 100 / 250 Constitutional: WD/WN, vitals as above Musculoskeletal: Left Leg: NVDI, calf SNT, negative stephanie sign. DP palpable, able to wiggle toes/ankle movement without difficulty. dressing clean dry and intact. Results & Data Vital Signs (Past 12 Hours) Vital Signs Temp Pulse Resp BP Pulse Ox O2 Del Method 01/06/23 03:09 36.5 C 52 L 16 127/75 96 Room Air 01/05/23 20:40 Room Air 01/05/23 23:03 36.4 C L 54 L 16 133/85 97 Room Air 01/05/23 19:55 36.4 C L 57 L 16 138/79 95 Room Air Laboratory Results Laboratory Results WBC 12.43 K/ul (4.8-10.8) H 01/06/23 06:26 RBC 3.93 M/uL (4.70-6.10) L 01/06/23 06:26 Hgb 12.4 g/dl (14.0-18.0) L 01/06/23 06:26 Hct 35.9 % (42.0-52.0) L 01/06/23 06:26 MCV 91.3 fL (80.0-100.0) 01/06/23 06:26 MCH 31.6 pg (25.0-34.0) 01/06/23 06:26 MCHC 34.5 g/dL (32.0-36.0) 01/06/23 06:26 RDW Std Deviation 49.9 fL (36.4-46.3) H 01/06/23 06:26 RDW Coeff of Maryanne 14.7 % (11.5-14.5) H 01/06/23 06:26 Plt Count 168 K/uL (130-400) 01/06/23 06:26 MPV 10.0 fL (9.4-12.4) 01/06/23 06:26 Impressions Knee X-Ray 01/05/23 12:11 TWO VIEWS LEFT KNEE CLINICAL HISTORY: Postoperative examination. FINDINGS: AP and crosstable lateral portable views of the left knee are obtained. A left knee arthroplasty is in near anatomic alignment. There has been undersurface remodeling of the patella. No acute fracture is seen. There are expected postoperative changes around the knee including a surgical drain, soft tissue edema, and subcutaneous gas. IMPRESSION: Expected postoperative changes status post left knee arthroplasty. No acute fracture is seen. ACT 112: Negative or not required by law. Electronically signed by: Rudy Brown M.D. 01/05/2023 2:44 PM Signed By: <Electronically signed by Sukhi Vance PA-C> 01/06/23 0714 <Electronically signed by Cedric Ku M.D.> 01/06/23 1340 Created:01/06/23 0712 Total Time Total Time Spent Total Time Spent (In Minutes): 5 Discharge Plan Discharge Items Patient Disposition: Home - Home Health Services Reason For Visit: Arthritis Left Knee, complex Tear of Medial Menisc Discharge Diagnosis: DJD left Knee; right knee medial/lateral meniscal tears Activity: Per Instructions section Non-emergency contact: Surgeon Call non-emergency contact if: you have any medication questions, your pain is not controlled, your temperature is above 101.5, your wound has increased redness and your wound has increased drainage Follow-up/Referrals: Preet Cisneros MD [Primary Care Provider] - Diet: Regular Addtl Attending Provider Instructions: Right Knee Arthroscopy Instructions ACTIVITY RECOMMENDATIONS: * You may walk on the leg with or without crutches as comfort permits. * Bending of the knee should start at once. * Do not shower for 48 hours following surgery. SPECIAL CARE INSTRUCTIONS: * You may cleanse the skin adjacent to the small wounds with soap and water at the time of the first dressing change. * The application of an ice bag to the front and sides of the knee will decrease swelling and discomfort for the first 48 hours. * The small incisions may be sore and develop bruising. This bruising does not require any special care. SPECIAL PRECAUTIONS: * If you experience unusual pain unrelieved by prescriptions, temperature elevation (100 degrees F. or above) or progressive swelling or bleeding, you should contact our office at for further evaluation. * You may have been prescribed pain medication. If you experience nausea and/or fine skin rash, discontinue this medication and contact our office at for an alternate medication. DRESSING: * Dressing should be comfortable and absorb any leakage of fluid and/or blood. * The dressing may become moist or bloodstained. * Dressing may be removed 48 hours after surgery and bandaids placed over the small surgical incisions. If can be removed sooner if it becomes very soiled or loose. * Bandaids may be used over next several days as needed and can be discontinued when there is not further drainage from the wounds. ACTIVITY RECOMMENDATIONS: SELF CARE INSTRUCTIONS AFTER TOTAL KNEE REPLACEMENT A. You may need to continue a physical therapy program after discharge from the hospital. There are several options available to you. Your doctor will assist you in selecting the best one for you. 1. An out-patient facility 2 to 3 times a week for therapy or home therapy. 2. Continue working on all exercises taught to you in the hospital. Your goals should be to increase bending of your knee to 90 degrees and beyond and to fully straighten your knee. B. You may progress at your own pace from walking with a walker or crutches to a cane; then to no assistive devices. C. Make walking a part of your daily routine. Be up as much as comfortable with rest periods throughout the day. Rest with leg elevation is very important. Use the ice wrap frequently for the first 3-4 weeks. D. There are no restrictions on activities. You may ride in a car, shop, participate in wrapper sizer and all social activities. E. Wear the long elastic stockings (HAIM hose) 20 hours a day for 2 weeks after surgery. They can be removed several times a day for laundering and for a bath. F. You may shower, no tub baths until cleared by your doctor. SPECIAL CARE INSTRUCTIONS: VERY IMPORTANT TO READ AND REVIEW A. There are a few signs you need to watch for after you are home. Call [facility] if you notice any of the followin. Increased severe knee pain. Some pain is expected especially when you exercise. 2. Increased swelling in your leg or knee; pain or swelling of the calf muscle in either lower leg. 3. Any fluid drainage from the incision. 4. Shortness of breath or chest pain. B. Please call [facility] at if you have any concerns or questions about your operation or recovery. The doctor or his nurse will return your call promptly. C. You must take antibiotics before dental work, bladder, bowel or other surgery. Your doctor will provide you with a permanent care to carry describing this precaution. IMPORTANT: * REMEMBER TO TAKE XARELTO 10MG DAILY FOR 4 WEEKS UNLESS OTHERWISE DIRECTED. THIS IS YOUR BLOOD THINNER. * CALL IF INCREASED PAIN, REDNESS, DRAINAGE OR FEVER GREATER THAT 101. * WEAR HAIM HOSE 20 HOURS PER DAY FOR 2 WEEKS. * JESSY Dressing - This is a large suction dressing covering your incision. This will help pull any excess drainage from the wound and allow your incision to heal properly. You may shower with this if you can keep the unit outside of the shower. If any bleeding or leakage is noted please call your doctor's office. This will remain on your incision for 7 days and then should be removed. This can be done yourself or by the home nursing staff if applicable. The entire unit is disposable once removed. Once removed, keep incision clean and dry. If redness or drainage is noted, please call your surgeon. . * Once Jessy dressing is removed, follow wound care instructions below. * DERMABOND Prineo- This is a mesh tape dressing that is covered with glue. It should remain in place until the incision is properly healed, usually 10-14 days. This dressing is designed to naturally slough off. You may trim the excess mesh tape as it peels off. Incision may be briefly wet in a shower. Dry immediately by blotting with a clean, dry towel. Do not bath or swim until instructed by your doctor. Do not scratch, rub, or pick at the dressing. Do not apply any topical ointments or lotions until dressing is completely removed and/or instructed by your doctor. There may be a small piece of suture material at one end of your incision. Do not pull or trim this. If it is bothersome or catching on clothing, you may cover it with a band-aid. FOLLOW UP VISIT: If appointment is not already scheduled: Please call [facility] to make a follow-up appointment for 2 weeks after your surgery at . Stand-Alone Forms: My [employer], Smoking Cessation Medications and DC Order Prescriptions: New Xarelto 10 mg Tablet 10 mg PO DAILY 28 Days Qty: 28 0RF acetaminophen [Tylenol Extra Strength] 500 mg Tablet 1,000 mg PO Q8 21 Days Qty: 126 0RF oxycodone 5 mg Tablet 5 - 10 mg PO Q6H PRN (Reason: pain) Qty: 30 0RF Rx Instructions: ongoing therapy, supervising dr deandra pisano. max 6 tabs in 24 hours cefadroxil 500 mg capsule 500 mg PO BID 14 Days Qty: 28 0RF docusate sodium 100 mg Capsule 100 mg PO BID Qty: 20 0RF Continued cholecalciferol (vitamin D3) [Vitamin D3] 50 mcg (2,000 unit) Tablet 50 mcg PO QAM tamsulosin 0.4 mg Capsule 0.4 mg PO HS pantoprazole 40 mg Tablet,Delayed Release (Dr/Ec) 20 mg PO QAM lisinopril 30 mg Tablet 15 mg PO QAM Discontinued aspirin [Aspir-81] 81 mg Tablet,Delayed Release (Dr/Ec) 81 mg PO QAM Krames/Other Patient Handouts: Knee Replace Recovery Admission Data Admit Date/Time: 01/05/23 12:11 Attending Provider: Sonny Pisano Admit Provider: Sonny Pisano Primary Care Provider: Preet Cisneros Other Interventions: Discharge Summary Assessment (RN) Last Done: 01/06/23 09:52
== END 2023-01-06 12:25 | disposition home health service (06) ==
LOC: 3E 07:30 → ASU 07:30